=== PATIENT | female | born 1985 | race African-American/Black ===

== ENCOUNTER 2025-01-23 18:56 | Emergency (ER) | payer MEDICAID ==
[~2025-01-23] VITALS: Ht 165.1 cm; Wt 70.0 kg
[2025-01-23 19:03] VITALS: BP 190/130; PULSE 120; RESP 19; TEMP 36.9; O2SAT 99
== END 2025-01-23 19:48 | disposition left against medical advice (07) ==
LOC: ER 18:56
DX: R11.2 Nausea with vomiting, unspecified (principal); Z53.21 Procedure and treatment not carried out due to patient leaving prior to being seen by health care provider